=== PATIENT | male | born 1965 | race Asian ===

== ENCOUNTER 2018-04-17 07:42 | Outpatient (CLI) | payer OTHER ==
[2018-04-17 08:16] LABS: PLATELET COUNT 190 K/uL (142-355)
[2018-04-17 09:21] LABS: POTASSIUM 4.1 mmol/L (3.6-5.2)
== END 2018-04-17 21:02 | disposition home or self-care (01) ==
LOC: LABW 07:42
PROVIDERS: Physician Assistant
DX: Z00.00 Encounter for general adult medical examination without abnormal findings (principal); R35.1 Nocturia
CPT/HCPCS: 36415; 80053; 80061; 83036; 84153; 84439; 84443; 85027

== ENCOUNTER 2020-05-21 09:58 | Outpatient (CLI) | payer OTHER | END 2020-05-21 20:13 | disposition home or self-care (01) | LOC: LABW 09:58 | DX: E29.1 Testicular hypofunction (principal) | CPT/HCPCS: 36415; 84402; 84403 ==

== ENCOUNTER 2023-06-24 09:25 | Outpatient (CLI) | payer OTHER ==
[2023-06-24 09:44] LABS: PLATELET COUNT 233 K/uL (142-355)
== END 2023-06-24 19:23 | disposition home or self-care (01) ==
LOC: LABW 09:25
PROVIDERS: ATTEND Orthopaedic Surgery
DX: Z47.89 Encounter for other orthopedic aftercare (principal)
CPT/HCPCS: 36415; 85027; 85652; 86140